=== PATIENT | male | born 1980 | race Caucasian/White ===

== ENCOUNTER 2018-07-28 22:45 | Emergency (ER) | payer MEDICAID ==
[2018-07-28] MEDS ORDERED: Ketorolac 60 MG/2 ML SDV IM ONE (23:28)
[2018-07-28] MEDS ORDERED: Meclizine 25 MG Tab PO ONE (23:28)
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
[2018-07-29 01:18] VITALS: BP 120/70
== END 2018-07-29 00:50 | disposition home or self-care (01) ==
LOC: JP.ED 22:45
DX: R42 Dizziness and giddiness (principal); R68.84 Jaw pain
CPT/HCPCS: 96372; 99282; 99283; A9270; J1885

== ENCOUNTER 2019-01-20 19:01 | Emergency (ER) | payer MEDICAID ==
--- NOTE | 2019-01-20 19:35 | EDM.PDOC ---
ED HPI GENERAL MEDICAL PROBLEM - General Chief Complaint: ENT Problem Stated Complaint: BROKEN TOOTH LEFT UPPER Time Seen by Provider: 01/20/19 19:26 Source of Information: Reports: Patient, RN Notes Reviewed History Limitations: Reports: No Limitations - History of Present Illness INITIAL COMMENTS - FREE TEXT/NARRATIVE: 38-year-old gentleman presents emergency department today for referral to the dental clinic he recently broke one of his teeth on the left side upper palate - Related Data Allergies Allergy/AdvReac Type Severity Reaction Status Date / Time No Known Allergies Allergy Verified 01/20/19 19:18 Home Meds: Home Meds Omeprazole 01/20/19 [History] Venlafaxine HCl [Venlafaxine ER] 01/20/19 [History] Past Medical History Other HEENT History: has had a root canal in the past - Infectious Disease History Infectious Disease History: Reports: Chicken Pox Social & Family History - Family History Family Medical History: Noncontributory - Tobacco Use Smoking Status *Q: Current Every Day Smoker Years of Tobacco use: 1 Packs/Tins Daily: 0.5 - Caffeine Use Caffeine Use: Reports: Coffee, Soda - Living Situation & Occupation Living situation: Reports: with Significant Other ED ROS ENT - Review of Systems Review Of Systems: See Below Constitutional: Reports: No Symptoms HEENT: Reports: Dental Pain ED EXAM, ENT - Physical Exam Exam: See Below Text/Narrative:: Examination of the mouth mucosa is moist and pink he does have a fracture of tooth #14 didn't temp is in place Exam Limited By: No Limitations General Appearance: Alert, WD/WN, No Apparent Distress Respiratory/Chest: No Respiratory Distress Course - Vital Signs Last Recorded V/S: Last Vital Signs Temp 97.6 F 01/20/19 19:26 Pulse 80 01/20/19 19:26 Resp 14 01/20/19 19:26 BP 114/72 01/20/19 19:26 Pulse Ox 98 01/20/19 19:26 Departure - Departure Time of Disposition: 19:35 Disposition: Home, Self-Care 01 Condition: Fair Clinical Impression: Broken tooth Qualifiers: Encounter type: initial encounter Fracture type: open Qualified Code(s): S02.5XXB - Fracture of tooth (traumatic), initial encounter for open fracture - Discharge Information Referrals: PCP,None [Primary Care Provider] - Additional Instructions: Please report to the dental clinic Tuesday at 8 AM for consultation with dentistry - Assessment/Plan Plan: Assessment Acuity = acute Site and laterality = tooth fracture #14 Etiology = secondary to caries and trauma with food Manifestations = none Location of injury = Home Lab values = none Plan Referral to the dental clinic set up for Tuesday 8 AM This note was dictated using [employer] voice recognition software please call with any questions on syntax or grammar.
[2019-01-20 20:22] VITALS: BP 114/72; PULSE 80
== END 2019-01-20 20:00 | disposition home or self-care (01) ==
LOC: JP.ED 19:01
DX: K03.81 Cracked tooth (principal); F17.210 Nicotine dependence, cigarettes, uncomplicated
CPT/HCPCS: 99283

== ENCOUNTER 2019-03-04 22:44 | Emergency (ER) | payer SELFPAY ==
[2019-03-04 23:03] VITALS: BP 130/72; PULSE 111
--- NOTE | 2019-03-04 23:27 | EDM.PDOC ---
ED HPI GENERAL MEDICAL PROBLEM - General Chief Complaint: ENT Problem Stated Complaint: UPPER LEFT BROKEN TOOTH Time Seen by Provider: 03/04/19 23:10 Source of Information: Reports: Patient History Limitations: Reports: No Limitations - History of Present Illness INITIAL COMMENTS - FREE TEXT/NARRATIVE: 38-year-old male with a left upper molar pain for the past several days. He is very hyper dramatic. No fever or chills, no swelling. He is asking for dental referral. Onset: Gradual Duration: Day(s): (3 days) Location: Reports: Other (Left maxillary molars) left upper tooth Pain Score (Numeric/FACES): 7 - Related Data Allergies Allergy/AdvReac Type Severity Reaction Status Date / Time No Known Allergies Allergy Verified 03/04/19 23:04 Home Meds: Home Meds Omeprazole 20 mg PO DAILY 01/20/19 [History] Venlafaxine HCl [Venlafaxine ER] 150 mg PO DAILY 01/20/19 [History] Ibuprofen 800 mg PO ASDIRECTED PRN 03/04/19 [History] hydrOXYzine HCl [hydrOXYzine] 25 mg PO TID 03/04/19 [History] Past Medical History - Past Health History Medical/Surgical History: Denies Medical/Surgical History HEENT History: Reports: Other (See Below) Other HEENT History: has had a root canal in the past Psychiatric History: Reports: Anxiety Endocrine/Metabolic History: Reports: Other (See Below) Other Endocrine/Metabolic History: hypoglycemic - Infectious Disease History Infectious Disease History: Reports: Chicken Pox Social & Family History - Family History Family Medical History: Noncontributory - Tobacco Use Smoking Status *Q: Never Smoker - Caffeine Use Caffeine Use: Reports: Coffee, Soda - Recreational Drug Use Recreational Drug Use: Yes Drug Use in Last 12 Months: No Recreational Drug Type: Reports: Ecstasy, Marijuana/Hashish, Methamphetamine Recreational Drug Use Frequency: Not Used In Over 1 Year - Living Situation & Occupation Living situation: Reports: with Significant Other ED ROS ENT - Review of Systems Review Of Systems: See Below Constitutional: Denies: Fever, Chills Respiratory: Reports: Shortness of Breath (Patient feels like it's hard to breathe) Cardiovascular: Denies: Chest Pain Psychiatric: Reports: Agitation, Anxiety ED EXAM, ENT - Physical Exam Exam: See Below Exam Limited By: No Limitations General Appearance: Alert, Anxious Mouth/Throat: Other (Advanced dental decay is present on the second molar of the left maxilla, no significant gingival erythema) Head: Atraumatic Respiratory/Chest: No Respiratory Distress, Lungs Clear Cardiovascular: Regular Rate, Rhythm, Tachycardia Extremities: Normal Inspection Neurological: Alert, Oriented Psychiatric: Anxious Course - Vital Signs Last Recorded V/S: Last Vital Signs Temp 97.4 F 03/04/19 23:07 Pulse 111 H 03/04/19 23:07 Resp 18 03/04/19 23:07 BP 130/72 03/04/19 23:07 Pulse Ox 95 03/04/19 23:07 - Re-Assessments/Exams Free Text/Narrative Re-Assessment/Exam: 03/04/19 23:27 Patient will be placed on penicillin VK 500 mg 4 times a day and a dental referral for next Tuesday or Tuesday was written. Departure - Departure Time of Disposition: 23:30 Disposition: Home, Self-Care 01 Clinical Impression: Decay, teeth - Discharge Information Instructions: Dental Abscess, [id number] Referrals: PCP,None [Primary Care Provider] - Forms: ED Department Discharge Care Plan Goals: Take antibiotic 4 times a day and go to the dental clinic on Tuesday to be worked in for an exam. Return sooner if worsening such as facial swelling or fever. Resume your other regular medications tomorrow.
== END 2019-03-04 23:57 | disposition home or self-care (01) ==
LOC: JP.ED 22:44
DX: K02.9 Dental caries, unspecified (principal)
CPT/HCPCS: 99282

== ENCOUNTER 2019-09-22 10:34 | Emergency (ER) | payer MEDICAID ==
[2019-09-22 11:20] VITALS: BP 117/78; PULSE 73
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
[2019-09-22] MEDS ORDERED: Bupivacaine 0.5% 10 ML SDV INJECT ONE (11:43)
[2019-09-22] MEDS ORDERED: Naproxen 250 MG Tab PO STA (11:44)
--- NOTE | 2019-09-24 09:30 | CR ---
Fingers Fifth Digit Lt F4, Shoulder Comp Lt CLINICAL HISTORY: Fall FINDINGS: There is a small ossific density off the dorsal aspect of the fifth DIP joint. This may represent avulsion. This could be old. There is soft tissue swelling IMPRESSION: Possible avulsion off the dorsal fifth the IP Soft tissue swelling
== END 2019-09-22 13:47 | disposition home or self-care (01) ==
LOC: JP.ED 10:34
DX: S63.297A Dislocation of distal interphalangeal joint of left little finger, initial encounter (principal); S43.005A Unspecified dislocation of left shoulder joint, initial encounter; S62.637A Displaced fracture of distal phalanx of left little finger, initial encounter for closed fracture; S00.01XA Abrasion of scalp, initial encounter; S00.81XA Abrasion of other part of head, initial encounter; F41.9 Anxiety disorder, unspecified; F32.9 Major depressive disorder, single episode, unspecified; F98.8 Other specified behavioral and emotional disorders with onset usually occurring in childhood and adolescence; F43.10 Post-traumatic stress disorder, unspecified; F17.210 Nicotine dependence, cigarettes, uncomplicated; Z79.899 Other long term (current) drug therapy; W10.9XXA Fall (on) (from) unspecified stairs and steps, initial encounter
CPT/HCPCS: 28660; 73030; 73140; 99283; A9270; J3490

== ENCOUNTER 2020-02-20 13:14 | Emergency (ER) | payer MEDICAID ==
[2020-02-20 14:24] VITALS: BP 125/78; PULSE 83
[2020-02-20] MEDS ORDERED: Bacitracin Oint 1 GM U/D Packet TOP ONE (15:42)
--- NOTE | 2020-02-20 15:48 | EDM.PDOC ---
ED HPI GENERAL MEDICAL PROBLEM - General Chief Complaint: Laceration Stated Complaint: CUT FINGER ON LEFT HAND Time Seen by Provider: 02/20/20 15:30 Source of Information: Reports: Patient, Old Records History Limitations: Reports: No Limitations - History of Present Illness INITIAL COMMENTS - FREE TEXT/NARRATIVE: 39 yo male here after cutting his L ring finger distally on an engine part before arrival. Here for eval. Tetanus is UTD. Onset: Today, Sudden Onset Date: 02/20/20 Duration: Minutes: Location: Reports: Upper Extremity, Left Quality: Reports: Dull Severity: Mild Improves with: Reports: None Worsens with: Reports: None Context: Reports: Trauma Associated Symptoms: Reports: No Other Symptoms Treatments PATTERN CLEANER: Reports: Other (see below) (none) - Related Data Allergies Allergy/AdvReac Type Severity Reaction Status Date / Time No Known Allergies Allergy Verified 09/22/19 11:22 Home Meds: Home Meds Omeprazole 20 mg PO DAILY 01/20/19 [History] Venlafaxine HCl [Venlafaxine ER] 150 mg PO DAILY 01/20/19 [History] Ibuprofen 800 mg PO ASDIRECTED PRN 03/04/19 [History] hydrOXYzine HCL [hydrOXYzine] 25 mg PO TID 03/04/19 [History] Sertraline HCl 100 mg PO DAILY 09/22/19 [History] buPROPion [Wellbutrin SR] 150 mg PO DAILY 09/22/19 [History] buPROPion [Wellbutrin] 150 tab PO 1300 09/22/19 [History] lamoTRIgine [Lamotrigine] 1 tab PO DAILY 09/22/19 [History] traZODone 200 mg PO BEDTIME 09/22/19 [History] Past Medical History - Past Health History Medical/Surgical History: Denies Medical/Surgical History HEENT History: Reports: Other (See Below) Other HEENT History: has had a root canal in the past Psychiatric History: Reports: ADD, Anxiety, Depression, PTSD, Other (See Below) Other Psychiatric History: dyslexia Endocrine/Metabolic History: Reports: Other (See Below) Other Endocrine/Metabolic History: hypoglycemic - Infectious Disease History Infectious Disease History: Reports: Chicken Pox Social & Family History - Family History Family Medical History: No Pertinent Family History - Tobacco Use Tobacco Use Status *Q: Current Every Day Tobacco User Years of Tobacco use: 3 Packs/Tins Daily: 0.5 - Caffeine Use Caffeine Use: Reports: Coffee, Soda Other Caffeine Use: 2 cups per day 2 sodas a day - Recreational Drug Use Recreational Drug Use: No - Living Situation & Occupation Living situation: Reports: with Significant Other ED ROS GENERAL - Review of Systems Review Of Systems: See Below Constitutional: Reports: No Symptoms Skin: Reports: Wound (distal L ring finger) Neurological: Reports: No Symptoms ED EXAM, SKIN/RASH Exam: See Below Exam Limited By: No Limitations General Appearance: Alert, WD/WN, No Apparent Distress Extremities: Other (wound distal L ring finger) Neurological: Alert, Oriented, CN II-XII Intact, Normal Cognition, No Motor/Sensory Deficits Psychiatric: Normal Affect, Normal Mood Skin: Warm, Dry, Normal Color, No Rash, Wound/Incision (small partial progressing to full thickness flap lac to the distal L ring finger, small, about 0.6 cm) Location, Skin: Upper Extremity, Left Characteristics: Other (irregular) Associated features: Tenderness. No: Lymphangitis Course - Vital Signs Text/Narrative:: Bacitracin and a dressing applied after cleaning by RN. Last Recorded V/S: Last Vital Signs Temp 36.3 C 02/20/20 14:58 Pulse 83 02/20/20 14:58 Resp 18 02/20/20 14:58 BP 125/78 02/20/20 14:58 Pulse Ox 99 02/20/20 14:58 - Orders/Labs/Meds Orders: Active Orders 24 hr Category Date Time Status Bacitracin [Bacitracin Oint 1 GM] Med 02/20/20 15:42 Once 1 dose TOP ONETIME ONE Departure - Departure Time of Disposition: 15:48 Disposition: Home, Self-Care 01 Condition: Fair Clinical Impression: Laceration of ring finger Qualifiers: Encounter type: initial encounter Damage to nail status: without damage Foreign body presence: without foreign body Laterality: left Qualified Code(s): S61.215A - Laceration without foreign body of left ring finger without damage to nail, initial encounter - Discharge Information *PRESCRIPTION DRUG MONITORING PROGRAM REVIEWED*: No *COPY OF PRESCRIPTION DRUG MONITORING REPORT IN PATIENT NANCY: No Instructions: Laceration Care, Adult, [id number] Referrals: PCP,None [Primary Care Provider] - Additional Instructions: Starting tomorrow clean wound twice daily with soap and water. Dry. Apply antibiotic ointment and a new dressing. Recheck for signs of infection. Keep wound clean for 3 days. Acetaminophen as needed for pain relief. Sepsis Event Note (ED) - Evaluation Sepsis Screening Result: No Definite Risk - Focused Exam Vital Signs: Vital Signs Temp Pulse Resp BP Pulse Ox 02/20/20 14:58 36.3 C 83 18 125/78 99 02/20/20 14:22 36.3 C 83 18 125/78 99 - My Orders Last 24 Hours: My Active Orders 02/20/20 15:42 Bacitracin [Bacitracin Oint 1 GM] 1 dose TOP ONETIME ONE - Assessment/Plan Last 24 Hours: My Active Orders 02/20/20 15:42 Bacitracin [Bacitracin Oint 1 GM] 1 dose TOP ONETIME ONE
== END 2020-02-20 16:05 | disposition home or self-care (01) ==
LOC: JP.ED 13:14
DX: S61.215A Laceration without foreign body of left ring finger without damage to nail, initial encounter (principal); F41.9 Anxiety disorder, unspecified; F32.9 Major depressive disorder, single episode, unspecified; F43.10 Post-traumatic stress disorder, unspecified; F17.210 Nicotine dependence, cigarettes, uncomplicated; Z79.899 Other long term (current) drug therapy; W26.8XXA Contact with other sharp object(s), not elsewhere classified, initial encounter
CPT/HCPCS: 99282

== ENCOUNTER 2020-03-20 18:43 | Emergency (ER) | payer MEDICAID ==
--- NOTE | 2020-03-20 19:03 | EDM.PDOC ---
ED HPI GENERAL MEDICAL PROBLEM - General Chief Complaint: General Stated Complaint: TOOTH PAIN Time Seen by Provider: 03/20/20 19:03 Source of Information: Reports: Patient History Limitations: Reports: No Limitations - History of Present Illness INITIAL COMMENTS - FREE TEXT/NARRATIVE: pt arrived with pain in his uppr rt post molar area. Pt feels like part of the tooth broke off. He has been working so he has not been able to see a dentist. He thinks this broke about 3 weeks ago. Onset: Gradual Duration: Hour(s): Location: Reports: Face Associated Symptoms: Reports: Other ( dental pain. ) Right Lower Jaw Pain Score (Numeric/FACES): 8 - Related Data Allergies Allergy/AdvReac Type Severity Reaction Status Date / Time No Known Allergies Allergy Verified 09/22/19 11:22 Home Meds: Home Meds Omeprazole 20 mg PO DAILY 01/20/19 [History] Ibuprofen 800 mg PO ASDIRECTED PRN 03/04/19 [History] Sertraline HCl 100 mg PO DAILY 09/22/19 [History] buPROPion [Wellbutrin SR] 300 mg PO DAILY 09/22/19 [History] buPROPion [Wellbutrin] 100 tab PO DAILY 09/22/19 [History] traZODone 50 mg PO BEDTIME 09/22/19 [History] Past Medical History - Past Health History Medical/Surgical History: Denies Medical/Surgical History HEENT History: Reports: Other (See Below) Other HEENT History: has had a root canal in the past Psychiatric History: Reports: ADD, Anxiety, Depression, PTSD, Other (See Below) Other Psychiatric History: dyslexia Endocrine/Metabolic History: Reports: Other (See Below) Other Endocrine/Metabolic History: hypoglycemic - Infectious Disease History Infectious Disease History: Reports: Chicken Pox Social & Family History - Family History Family Medical History: No Pertinent Family History - Caffeine Use Caffeine Use: Reports: Coffee, Soda Other Caffeine Use: 2 cups per day 2 sodas a day - Living Situation & Occupation Living situation: Reports: with Significant Other ED ROS GENERAL - Review of Systems Review Of Systems: See Below Constitutional: Reports: No Symptoms HEENT: Reports: Dental Pain Respiratory: Reports: No Symptoms Cardiovascular: Reports: No Symptoms Endocrine: Reports: No Symptoms GI/Abdominal: Reports: No Symptoms : Reports: No Symptoms Musculoskeletal: Reports: No Symptoms ED EXAM, GENERAL - Physical Exam Exam: See Below Exam Limited By: No Limitations General Appearance: Alert Ears: Normal TMs Nose: Normal Inspection Throat/Mouth: Other (pt has a broken upper tooth. He has been having pain about 3 weekls. This has goten worse in the last few days. there does not appear to be an abcess present. ) Course - Vital Signs Last Recorded V/S: Last Vital Signs Temp 35.1 C L 03/20/20 19:04 Pulse 101 H 03/20/20 19:04 Resp 16 03/20/20 19:04 BP 125/79 03/20/20 19:04 Pulse Ox 98 03/20/20 19:04 - Orders/Labs/Meds Meds: Medications Discontinued Medications Generic Name Dose Route Start Last Admin Trade Name Yuilsa PRN Reason Stop Dose Admin Amoxicillin 500 mg 03/20/20 19:43 03/20/20 19:47 Amoxil PO 03/20/20 19:44 500 mg ONETIME ONE Administration - Re-Assessments/Exams Free Text/Narrative Re-Assessment/Exam: 03/20/20 19:46 pt was given amoxicillin 500mg po. Departure - Departure Time of Disposition: 19:41 Disposition: Home, Self-Care 01 Condition: Fair Clinical Impression: Broken tooth - Discharge Information Instructions: Tooth Injuries, [id number] Referrals: Roly Bell NP [Primary Care Provider] - Forms: ED Department Discharge Care Plan Goals: push fluids, use tylenol alternating with motrin. amoxicillin 500mg tid. dental referal for tuesday. t
[2020-03-20 19:05] VITALS: BP 125/79; PULSE 101
[2020-03-20] MEDS ORDERED: Amoxicillin 500 MG Cap PO ONE (19:43)
== END 2020-03-20 19:49 | disposition home or self-care (01) ==
LOC: JP.ED 18:43
DX: K03.81 Cracked tooth (principal); F41.9 Anxiety disorder, unspecified; F32.9 Major depressive disorder, single episode, unspecified; F43.10 Post-traumatic stress disorder, unspecified; Z79.899 Other long term (current) drug therapy
CPT/HCPCS: 99282; 99283; A9270

== ENCOUNTER 2025-03-28 11:07 | Emergency (ER) | payer SELFPAY ==
[2025-03-28 12:10] VITALS: BP 133/69; PULSE 56
== END 2025-03-28 13:17 | disposition home or self-care (01) ==
LOC: JP.EDOUT 11:07 → MERGE 11:07 → JP.ED 11:07 → EDSTATUS 11:13 → JP.ED 13:17
DX: L02.211 Cutaneous abscess of abdominal wall (principal)
CPT/HCPCS: 99282; 99283